=== PATIENT | female | born 1970 | race Two or more races ===

== ENCOUNTER 2018-01-12 12:40 | Emergency (ER) | payer OTHER ==
[~2018-01-12] VITALS: Ht 147.3 cm; Wt 54.4 kg
[2018-01-12 12:46] VITALS: Ht 147.3 cm; Wt 54.4 kg
[2018-01-12 14:33] LABS: AMPHETAMINE QUAL UR NONE DETECTED (NEG <=1000)
[2018-01-12 14:41] LABS: CALCIUM 9.1 mg/dL (8.5-10.1); CHLORIDE SERUM 101 mmol/L (98-107); CREATININE SERUM 0.7 mg/dL (0.6-1.0); GFR1 > 60 mL/min; GLUCOSE SERUM 70 mg/dL (74-106); POTASSIUM SERUM 3.6 mmol/L (3.5-5.1); SODIUM SERUM 141 mmol/L (136-145)
[2018-01-12 14:45] LABS: ALBUMIN 4.1 g/dL (3.4-5.0); ALKALINE PHOSPHATASE 169 U/L (46-116); ALT/SGPT 50 U/L (14-59); AST/SGOT 32 U/L (15-37); BILIRUBIN TOTAL 0.3 mg/dL (0.20-1.00)
[2018-01-12 14:48] LABS: CHOLESTEROL 231 mg/dL (<200); TOTAL PROTEIN, SERUM 8.5 g/dL (6.4-8.2)
[2018-01-12 15:05] LABS: BASOPHIL % 0.6 % (0-2); PLATELET COUNT 347 x10^3mcL (130-400); RED CELL DISTRIBUTION WIDTH 13.7 % (11.5-14.5)
[2018-01-12 15:56] VITALS: BP 130/74
== END 2018-01-12 15:56 | disposition left against medical advice (07) ==
LOC: ED 12:40
PROVIDERS: Specialist
DX: K08.89 Other specified disorders of teeth and supporting structures (principal); R51 Headache; R55 Syncope and collapse
CPT/HCPCS: 36415